=== PATIENT | male | born 1950 | race Caucasian/White ===

== ENCOUNTER → 2017-10-25 | Outpatient (CLI) | payer OTHER, MEDICARE | LOC: ULTRA 09:24 | DX: M79.662 Pain in left lower leg (principal); M79.89 Other specified soft tissue disorders ==

== ENCOUNTER 2019-03-21 08:45 | Inpatient (IN) | payer OTHER, MEDICARE ==
[~2019-03-21] VITALS: Ht 185.4 cm; Wt 93.0 kg
[2019-03-21 08:45] VITALS: BP 155/79
[2019-03-21] MEDS ORDERED: TRULICITY0.75 MG/0. SUBQ (08:59)
[2019-03-21] MEDS ORDERED: METFORMIN HCL500 M3 PO (08:59)
[2019-03-21 09:06] LABS: URINE BILIRUBIN NEGATIVE (Negative); URINE BLOOD NEGATIVE (Negative); URINE CLARITY CLEAR; URINE COLOR YELLOW; URINE GLUCOSE-RANDOM* 3+ (Negative); URINE KETONES TRACE (Negative); URINE LEUKOCYTES-REFLEX NEGATIVE (Negative); URINE NITRITE-REFLEX NEGATIVE (Negative); URINE PROTEIN (DIPSTICK) NEGATIVE (Negative); URINE SPECIFIC GRAVITY 1.015 (1.005-1.035); URINE UROBILINOGEN 0.2 E.U./dl (0.2-1.0)
[2019-03-21 09:30] LABS: CALCIUM 9.3 mg/dL (8.5-10.1); CREATININE 0.8 mg/dL (0.7-1.3); POTASSIUM 4.2 mmol/L (3.5-5.1)
[2019-03-21 09:31] LABS: ABSOLUTE NEUTROPHILS 4.3 thou/uL (1.4-8.2); BASOPHILS 0.8 % (0.0-2.0); EOSINOPHILS 1.1 % (0.0-3.0); HEMATOCRIT 45.1 % (42.0-52.0); HEMOGLOBIN 15.5 gm/dL (14.0-18.0); LYMPHOCYTES 24.3 % (24.0-44.0); MCH 31.6 pg (26.0-34.0); MCHC 34.5 g/dL (28.0-37.0); MCV 91.7 fL (80.0-100.0); MONOCYTES 6.4 % (1.0-8.0); PLATELET COUNT 226 thou/uL (150-400); POLYS 67.4 % (36.0-66.0); RBC 4.91 mil/uL (4.50-6.00); RDW 12.5 % (10.5-14.5); WBC 6.3 thou/uL (4.0-11.0)
[2019-03-21 09:36] LABS: ALBUMIN 3.6 g/dL (3.4-5.0); TOTAL BILIRUBIN 0.6 mg/dL (<0.1-1.0); TOTAL PROTEIN 6.5 g/dL (6.4-8.2)
[2019-03-21 16:20] VITALS: BP 151/66
[2019-03-21 18:22] VITALS: BP 133/65
[2019-03-21 18:45] VITALS: BP 135/74
--- NOTE | 2019-03-21 20:45 | NUR ---
PATIENT ADMITTED FROM ER, ADMITTED WITH RIGHT LOWER ABD. PAIN. PATIENT ON CLEAR LIQUID DIET, GIVEN DINNER UPON ARRIVAL TO UNIT. PATIENT WILL START BOWEL PREP ON INSPECTOR CONVEYOR LINE. NPO AFTER MIDNIGHT FOR COLONOSCOPY TOMORROW. PATIENT HAS 20G IV LEFT AC WITH NS AT 125CC/HR. C/O PAIN WITH RIGHT ABDOMEN 5/10, BUT REFUSED PAIN MEDS UPON ARRIVAL TO THE UNIT. PATIENT ALERT AND ORIENTED X 4. UP AD JOCELYNE TO THE BATHROOM. VSS DONE AND NOTE PUT IN THIS RN. ADMISSION HISTORY AND EDUCATION DONE.
--- NOTE | 2019-03-22 00:52 | NUR ---
Assumed pt care at 1900. A/OX4,VSS. Admission assessment completed without problems. Pt is up ad demond, calls appeopriately. Pt did complete bowel prep promptly and having formed BMs at this time. C/o mild pain to abd but declines need for pain medications encouraged to voice needs as needed. Pt has been NPO since midnight for a colonoscopy. Will continue to monitor pt.
[2019-03-22 04:23] VITALS: BP 135/71
--- NOTE | 2019-03-22 08:04 | EKG ---
[address] [employer] [place] [address] ELECTROCARDIOGRAM REPORT Name: OK REYES Room #: 437-P ADM IN M.R.#: [id number] Admission: 03/21/19 Attend Phys: Anthony Cheema MD Discharge: Date of : 50 Report #: [id number] THIS REPORT FOR: //name// [facility] ED Test Date: 2019-03-21 Test Time: 09:02:08 Pat Name: OK REYES Department: Room: [facility] Gender: M Department Store Salesperson: Tracy DIAZ : 1950 Requested By: Tony Prasad Order Number: [id number] MD: Kenroy Cruz Measurements Intervals [place] Rate: 62 P: 46 IN: 153 QRS: 74 QRSD: 96 T: 17 QT: 415 QTc: 422 Interpretive Statements Sinus rhythm Nonspecific ST segment abnormality No previous ECG available for comparison Electronically Signed On 03-22-2019 8:04:08 CDT by Kenroy Cruz [email or web address] <ELECTRONICALLY SIGNED> By: Kenroy Cruz MD, [facility] 03/22/19 0804 1 09 Kenroy Cruz MD, FACC /EPI
[2019-03-22 08:42] VITALS: BP 147/82
--- NOTE | 2019-03-22 10:23 | NUR ---
Chart reviewed and case discussed with the care team. Pt admitted with abd pain and having colonoscopy today. He is up ad demond in his room and was indep and active prior to admission. He lives with his and has health ins in place for followup care. No cm interventions indicated at this time. Will remain available should needs arise.
[2019-03-22 18:22] VITALS: BP 147/82
--- NOTE | 2019-03-22 18:28 | NUR ---
ASSUMED CARE OF PATIENT AT 0715, PATIENT ALERT AND ORIENTED X 4. PATIENT WAS NPO AFTER MIGNIGHT FOR COLONOSCOPY THIS AFTERNOON. PATIENT HAD IV RIGHT AC IN PLACE WITH NS AT 125CC/HR. PATIENT C/O PAIN WITH RIGHT LOWER QUAD BUT REFUSED PAIN MEDS THIS SIFT. PATIENT LEFT THE UNIT AT AROUND 1100, RETURNED BACK TO THE UNIT AT AROUND 1500, REPORT FROM OR FROM MICAH/RN EGD/COLONOSCOPY FOUND 3 POYLPS AND GASTRIC BIOPSY DONE. PATIENT ON SOFT DIET, STILL HAVING PAIN BUT REFUSED PAIN MEDS. DR BELLO CALLED SPOKE WITH THE PATIENT, HE WANTS TO GO HOME. RECEIVED DISCHARGE ORDER TO GO HOME. WENT OVER DISCHARGE PAPERWORK WITH THE PATIENT, NO SCRIPTS GIVEN. HERE TO TRANSPORT HOME. RIGHT AV IV REMOVED PRIOR TO DISCHARGE.
--- NOTE | 2019-03-23 21:24 | P ---
[facility] [place] [address] [address] [place] [address] PROCEDURE REPORT Name: OK REYES Room #: 437-P [facility] IN M.R.#: [id number] Admission: 03/21/19 Attend Phys: Anthony Cheema MD Discharge: 03/22/19 Date of : 50 Report #: [id number] THIS REPORT FOR: //name// CC: Anthony Cheema MD DATE OF SERVICE: 03/22/2019 INDICATION: To evaluate right lower quadrant pain. PROCEDURE: Colonoscopy with snare polypectomy and biopsy forceps, removal of polyps. Informed consent for this procedure was obtained prior to the administration of any medication. The risks of the procedure, which include but are not limited to bleeding, perforation, infection, complications of sedation and the possibility I could miss something have been explained to the patient and he has indicated his consent by signing. Anesthesia kindly provided deep sedation for this procedure and EGD that preceded it. DESCRIPTION OF PROCEDURE: With the patient in the left lateral decubitus position, a digital rectal exam was performed and no abnormalities were palpable. Then, the Olympus colonoscope was introduced through the anal sphincter and advanced under direct visualization to the terminal ileum. Findings are noted on withdrawal of the scope. The terminal ileal mucosa appears normal. In the cecum, there are several uncomplicated diverticula noted. The size of the cecal polyp was approximately 3 mm, the polyp was recovered and sent to pathology lab. There are as I mentioned previously uncomplicated diverticula noted in the cecum. Ascending colon, normal mucosa. Hepatic flexure, normal mucosa. Transverse colon, normal mucosa. In the descending colon, there was a second polyp that was approximately 5 mm in size. It was removed completely with a hot snare and sent to pathology lab. Good hemostasis was noted after that polypectomy. The remaining descending colonic mucosa appears normal. In the sigmoid colon at approximately 20 cm, there was a third polyp that was removed in toto with a hot snare and sent to pathology lab. It was a size 8 mm in size. Good hemostasis was noted after all biopsies. The rectum appeared normal as did the remaining sigmoid colon. Retroflex view in the rectum did not reveal any further abnormalities. The scope was withdrawn. The patient went to the recovery room in stable condition. He tolerated the procedure well. IMPRESSION: Colon polyp, size 3-6 mm, removed with snare and biopsy forceps as above. [address] [address] PROCEDURE REPORT Name: OK REYES Room #: 437-P [facility] IN M.R.#: [id number] Admission: 03/21/19 Attend Phys: Anthony Cheema MD Discharge: 03/22/19 Date of : 50 Report #: [id number] RECOMMENDATIONS: From the cecum, descending colon and at the 20 cm mercedes, polyps were removed completely and sent to pathology lab. Good hemostasis was noted after all polypectomies. Other than these findings, the colonoscopy was normal to the terminal ileum except for uncomplicated diverticulosis of the cecum. RECOMMENDATIONS: To await the path report. Thank you very much once again for allowing me to participate in his care, Dr. Cheema. <ELECTRONICALLY SIGNED> By: Kenya Grove DO 03/23/192123 29 1414 Kenya Grove DO /nt
--- NOTE | 2019-03-23 21:24 | P ---
[facility] [place] [address] PROCEDURE REPORT Name: OK REYES Room #: 437-P [facility] IN M.R.#: [id number] Admission: 03/21/19 Attend Phys: Anthony Cheema MD Discharge: 03/22/19 Date of : 50 Report #: [id number] THIS REPORT FOR: //name// CC: Anthony Cheema MD DATE OF SERVICE: 03/22/2019 PROCEDURE: EGD with biopsy. He is a patient of Dr. Anthony Cheema and this is Dr Kenya Grove, recording. INDICATION FOR PROCEDURE: Evaluate right-sided abdominal pain. Informed consent for this procedure was obtained prior to the administration of any medication. The risks of the procedure, which include bleeding, perforation, infection, complications of sedation and the possibility I could miss something were explained to the patient and he has indicated his consent to proceed by signing. Anesthesia kindly provided deep sedation for this procedure. With the patient in the left lateral decubitus position, the Olympus upper videoscope was introduced through the upper esophageal sphincter and advanced under direct visualization to the third portion of the duodenum. Findings are noted on withdrawal of the scope. The duodenal mucosa appears normal throughout its entirety. Pylorus, normal mucosa. Antrum, mild patchy erythema is noted in the antrum of the stomach. Biopsies were obtained primarily to rule out H. pylori infection and any other etiologies of the erythema. Body, normal mucosa. Cardia and fundus, normal mucosa. Retroflex view did not reveal any further abnormalities. The scope was withdrawn into the esophagus. The Z-line is appropriately located at the top of the gastric folds and appears normal. The esophageal mucosa appears normal throughout its entirety. The scope was withdrawn. The patient was turned for colonoscopy. IMPRESSION: Mild patchy antral erythema. Biopsies pending to rule out H. pylori. RECOMMENDATIONS: To await the biopsy results. We will proceed with colonoscopy at this time. [facility] [address] [place] [address] PROCEDURE REPORT Name: ERICOK Room #: 437-P [facility] IN [facility].#: [id number] Admission: 03/21/19 Attend Phys: Anthony Cheema MD Discharge: 03/22/19 Date of : 50 Report #: [id number] Thank you very much once again for allowing me to participate in his care. <ELECTRONICALLY SIGNED> By: Kenya Grove DO 03/23/194 21 1417 Kenya Grove DO /nt
--- NOTE | 2019-03-24 17:06 | PATH ---
[facility] [place] [address] PATHOLOGY RPT PROCEDURE Name: OK REYES Room #: 437-P DIS IN M.R.#: [id number] Admission: 03/21/19 Date of : 50 Discharge: 03/22/19 Report #: [id number] Path Case #: [id number] [facility] Accession Number: [id number] . 01 Material submitted: . PART A: stomach - GASTRIC BIOPSY TO R/O H. PYLORI PART B: cecum - POLYP AT CECUM PART C: colon - POLYP AT DESCENDING COLON. Modifiers: descending PART D: colon - POLYP AT 20CM . 01 Clinical history: . Preop DX: Right sided abd pain Postop DX: 3 colon polyps, mild erythema at antrum A. r/o h. Pylori . 02 Diagnosis: A. Gastric mucosa, gastric rule out H. pylori, endoscopic biopsy: - Mild chronic inflammation. - Negative for intestinal metaplasia or atrophy. - Negative for Helicobacter pylori (properly controlled immunohistochemical stain performed). . B. Polyp, cecum, endoscopic biopsy: - Compatible with a hyperplastic polyp. - Negative for dysplasia. . C. Polyp, at descending colon, endoscopic biopsy: - Hyperplastic polyp. - Negative for dysplasia. - One fragment showing smooth muscle (please see comment). . D. Polyp, at 20 cm, endoscopic biopsy: - Tubular adenoma. - Negative for high-grade dysplasia. . 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 02 Comment: Part C: A tiny oval fragment comprised of smooth muscle is identified separately detached from the mucosa. This may represent a fragment of the muscularis mucosae or a submucosal leiomyoma. There is no nuclear atypia, increased cellularity, mitotic activity or necrosis identified within this sample. Clinical correlation is suggested. 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 02 Electronically signed: [place] [address] PATHOLOGY RPT PROCEDURE Name: OK REYES Room #: 437-P [facility] IN [facility]#: [id number] Admission: 03/21/19 Date of : 50 Discharge: 03/22/19 Report #: [id number] Path Case #: [id number] Anila Leal MD, Pathologist NPI- [id number] . 01 Gross description: . A. Received in formalin labeled "Ok Reyes, gastric BX," are two fragments of yang-brown soft tissue measuring 0.4 x 0.3 x 0.1 cm and 0.5 x 0.3 x 0.2 cm in greatest dimensions. The specimen is submitted entirely in cassette A1. . B. Received in formalin labeled "Ok Reyes, polyp at cecum," is a segment of yellow-yang soft tissue measuring 0.4 x 0.2 x 0.1 cm in greatest dimensions. The specimen is submitted entirely in cassette B1. . C. Received in formalin labeled "Ok Reyes, polyp at descending colon," are three segments of yang-brown soft tissue measuring 0.6 x 0.5 x 0.2 cm in aggregate dimensions and ranging from 0.2 to 0.6 cm in maximum dimension. The specimen is submitted entirely in cassette C1. . D. Received in formalin labeled "Ok Reyes, polyp at 20 cm," is a polypoid segment of yang-brown soft tissue measuring 0.7 x 0.4 x 0.4 cm in greatest dimensions. The surgical margin is inked, and the specimen is bisected and submitted entirely in cassette D1. (DAC; 03/23/2019) XDC/XDC 03/23/2019 1401 Local . 02 Pathologist provided ICD-10: K29.50, K63.5, D12.6 . 02 CPT . 780081, 275802, 748729, 378747, V80197 Specimen Comment: A courtesy copy of this report has been sent to [phone] Specimen Comment: [id number] Specimen Comment: Report sent to / DR BELLO Performed at: [address], [place] [id number] MD Forest Rushing MD Phone: [phone] Performed at: [address] [id number] MD Anila Leal MD Phone: [phone]
== END 2019-03-22 18:40 | disposition home or self-care (01) | DRG 395 ==
LOC: ER 08:45 → EROBS 12:59 → 4S 12:59
PROVIDERS: Emergency Medicine; ADMIT Family Medicine
PROC: 0DBH8ZX Excision of Cecum, Via Natural or Artificial Opening Endoscopic, Diagnostic (ICD-10-PCS; principal; 2019-03-22)
PROC: 0DBN8ZX Excision of Sigmoid Colon, Via Natural or Artificial Opening Endoscopic, Diagnostic (ICD-10-PCS; 2019-03-22)
PROC: 0DBM8ZX Excision of Descending Colon, Via Natural or Artificial Opening Endoscopic, Diagnostic (ICD-10-PCS; 2019-03-22)
PROC: 0DB78ZX Excision of Stomach, Pylorus, Via Natural or Artificial Opening Endoscopic, Diagnostic (ICD-10-PCS; 2019-03-22)
DX: K63.89 Other specified diseases of intestine (principal); K21.9 Gastro-esophageal reflux disease without esophagitis; E11.9 Type 2 diabetes mellitus without complications; K63.5 Polyp of colon; Z79.899 Other long term (current) drug therapy; Z79.84 Long term (current) use of oral hypoglycemic drugs; Z86.010 Personal history of colon polyps
CPT/HCPCS: 10195; 62110; 62900; 70005

== ENCOUNTER → 2019-07-31 | Outpatient (CLI) | payer OTHER, MEDICARE ==
[~2019-07-31] MED LIST: METFORMIN HCL500 M3 PO; TRULICITY0.75 MG/0. SUBQ
== END ==
LOC: RAD 09:12
DX: R06.00 Dyspnea, unspecified (principal)

== ENCOUNTER → 2020-10-15 | Outpatient (CLI) | payer OTHER, MEDICARE | LOC: CAT 09:43 | PROVIDERS: ATTEND Family Medicine | DX: K80.20 Calculus of gallbladder without cholecystitis without obstruction (principal); K57.30 Diverticulosis of large intestine without perforation or abscess without bleeding; K76.0 Fatty (change of) liver, not elsewhere classified; N42.9 Disorder of prostate, unspecified ==

== ENCOUNTER → 2020-11-15 | Outpatient (CLI) | payer OTHER, MEDICARE ==
[~2020-11-15] VITALS: Ht 185.4 cm; Wt 93.0 kg
[~2020-11-15] MED LIST changes: +ADVIL200 M1 PO; +ATORVASTATIN CA10 MG PO; +FISH OIL 1,0001 EAC9 PO; +JARDIANCE25 MG PO
--- NOTE | 2020-11-19 12:42 | P ---
[facility] [place] [address] [place] [address] PROCEDURE REPORT Name: OK REYES Room #: REG DIANAKarthik Russell#: [id number] Admission: 11/15/20 Attend Phys: Martín Patel Discharge: Date of : 50 Report #: [id number] THIS REPORT FOR: cc: Anthony Cheema MD, Neal A. MD McElhinney, Christian C. MD ~ DOC #: [id number] cc: MD Martín Green MD DATE OF SERVICE: 11/15/2020 PROCEDURE PERFORMED: Upper endoscopy with biopsies. HISTORY OF PRESENT ILLNESS: The patient is a 70-year-old male with intermittent abdominal pain. He does report some gas and bloating in the mid epigastrium, but primarily pain is in the right lower quadrant. It has been ongoing for approximately a year. He describes it as a discomfort, is there most days. It is not severe. He underwent an EGD and colonoscopy by his partner in 02/2019. EGD at that time showing mild gastritis. Colonoscopy, small polyp was removed. He underwent a CT scan of the abdomen and pelvis on 10/15/2020 showing cholelithiasis, no gallbladder wall thickening, mild diffuse fatty infiltration of the liver, similar to prior study, prominent lymph nodes in the root of the mesentery, this may represent mesenteric adenitis. Appendix was normal. No evidence involving inflammation of the cecum where ascending colon. Moderate stool noted throughout the colon, small diverticula in the sigmoid colon without inflammation. Plan is for EGD. DESCRIPTION OF PROCEDURE: The risks and benefits of the procedure were explained to the patient, those risks including but not limited to bleeding, perforation and the risk of sedation. He understood these risks and gave informed consent. Sedation was given using propofol per anesthesia. Next, using a standard Olympus upper endoscope, the scope was placed in the patient's mouth and advanced under direct vision through the esophagus, stomach and into the second portion of the duodenum. The larynx was normal in appearance. The upper and mid esophagus was normal. At the GE junction, mild grade A erosive esophagitis was noted. Overall, the gastric mucosa was normal in the fundus and body, mild erythema was noted in the gastric antrum. Biopsies were obtained to rule out H. pylori. The pylorus was normal and patent. The duodenal bulb, first and second portion were all normal. Random biopsies were also obtained to rule out the possibility of celiac sprue. The scope was then withdrawn and the procedure terminated. The patient tolerated the procedure well. IMPRESSION: 1. Grade A erosive esophagitis. 2. Mild erythema in the gastric antrum. [address] [address] PROCEDURE REPORT Name: OK REYES Room #: REG SANDEE Russell#: [id number] Admission: 11/15/20 Attend Phys: Martín Patel Discharge: Date of : 50 Report #: [id number] 3. Otherwise, normal upper endoscopy. RECOMMENDATIONS: 1. Await biopsy results. 2. Recommend a trial of daily PPI therapy. 3. As far as the patient's right lower quadrant abdominal pain, plan is to start Levsin on a p.r.n. basis. 4. If continued symptoms, could consider repeat colonoscopy. Thank you for allowing me to participate in his care. Martín Ferguson MD CCM/JOCELYN <ELECTRONICALLY SIGNED> By: Martín Ferguson MD 11/19/20 1242 1001 2138 Martín Ferguson MD /tray
--- NOTE | 2020-11-19 18:06 | PATH ---
[facility] [address] [place] [address] PATHOLOGY RPT PROCEDURE Name: OK CRUZ Room #: REG SANDEE Russell#: [id number] Admission: 11/15/20 Date of : 50 Discharge: Report #: [id number] Path Case #: [id number] [facility] Accession Number: [id number] . 01 Material submitted: . PART A: duodenum - DUODENAL BIOPSY PART B: gastrointestinal site - GASTRIC . 01 Clinical history: . EGD US/ABDOMEN RLQ PAIN/DTS . 02 Diagnosis: A. Duodenal mucosa (biopsy): - Mild to moderate non-specific chronic inflammation of lamina propria with focal lymphoid aggregate formation, villus height to width ratio 3-5:1. Changes are not suggestive of sprue or sprue-like condition. . B. Gastric mucosa (biopsy): - Mild to moderate chronic gastritis, mild activity, negative for dysplasia, negative for intestinal metaplasia, negative for Helicobacter-like organisms. (GRUPO/max; 11/19/2020) LBQ 11/19/2020 1145 Local . 02 Comment: IHC for H. pylori on A1: Negative . 02 Electronically signed: . Glenn Oakley MD, Pathologist NPI- [id number] . 01 Gross description: . A. The specimen is received in formalin, labeled "Ok Cruz duodenal biopsy". Received are three segments of pale yagn soft tissue ranging in size from 0.3 to 0.5 cm in maximum dimensions. The specimen is submitted entirely in cassette A1. . B. The specimen is received in formalin, labeled "Ok Cruz, gastric". Received are four segments of light yang soft tissue ranging in size from 0.3 to 0.6 cm in maximum dimensions. The specimen is submitted entirely in cassette B1. (CAA; 11/18/2020) QA/[facility] 11/18/2020 1334 Local . 02 Pathologist provided ICD-10: K29.80, K29.[address] [address] PATHOLOGY RPT PROCEDURE Name: ERICOK Room #: REG [facility] Yvonne#: [id number] Admission: 11/15/20 Date of : 50 Discharge: Report #: [id number] Path Case #: [id number] . 02 CPT . 019488, [id number], [id number] Specimen Comment: A courtesy copy of this report has been sent to [phone] Specimen Comment: [phone] Specimen Comment: Report sent to / DR BELLO Performed at: 01 [facility] [address] [id number] MD Garry Limon MD Phone: [phone] Performed at: 02 [facility] [address] [id number] MD Glenn Oakley MD Phone: [phone]
== END | disposition home or self-care (01) ==
LOC: ULTRA 07:28 → GI 16:14
PROVIDERS: ATTEND Specialist
DX: R10.31 Right lower quadrant pain (principal); K29.50 Unspecified chronic gastritis without bleeding; K29.80 Duodenitis without bleeding; E11.9 Type 2 diabetes mellitus without complications; E78.5 Hyperlipidemia, unspecified; Z98.890 Other specified postprocedural states; Z79.899 Other long term (current) drug therapy; Z96.653 Presence of artificial knee joint, bilateral
CPT/HCPCS: 62110; 62900